=== PATIENT | male | born 2000 | race Caucasian/White ===

== ENCOUNTER 2021-05-21 14:56 | Emergency (ER) | payer BC, SELFPAY ==
[2021-05-21 15:06] VITALS: BP 131/77; PULSE 70; RESP 16; TEMP 36.3; O2SAT 99; BMI 31.2
[2021-05-21 15:18] VITALS: BP 131/71; PULSE 70; RESP 18; O2SAT 99
[2021-05-21] MEDS: tetanus-dipt-pertussis 0.5 mL SDV IM (15:33)
--- NOTE | 2021-05-21 15:36 | PC.NURSE ---
[employer]ET [employer] REPORTER approved no Lidocaine as wound was closed with skin adhesive
--- NOTE | 2021-05-21 15:37 | ED_ITS ---
HPI - Wound/Laceration General: Chief Complaint: Wound/Laceration Stated Complaint: Left thumb lac Time Seen by Provider: 05/21/21 15:09 History of Present Illness: HPI narrative: Patient cut there between left thumb and index finger with a knife while skinning a deer today. Onset (ago): minute(s) Extremity Location: Left: hand Place: home Patient tetanus UTD: No Context: accidental Associated symptoms: Reports no associated symptoms; Denies chills or fever(s) Review of Systems Const: Denies: fever(s) or chills Skin/Breast: Reports: other (Laceration left thumb) Psych: Denies: anxiety Physical Exam Const: COMMON NORMALS: no acute distress Psych: COMMON NORMALS: mental status grossly normal Skin: OTHER: Laceration left thumb proximally 1 cm very superficial closed with glue. Small laceration to the index finger 3 mm closed with glue. Distal neurovascular functions all intact. Procedures Laceration Laceration 1: Site: hand Side (If applicable): left Size (cm): 2 Description: linear Depth: simple, single layer Pre-repair: wound explored and irrigated extensively Skin layer closed with: other (Skin adhesive) Course Vital Signs: Vital signs: Vital Signs Temperature 97.3 F L 05/21/21 15:06 Pulse Rate 70 05/21/21 15:18 Respiratory Rate 18 05/21/21 15:18 Blood Pressure 131/71 05/21/21 15:18 Pulse Oximetry 99 05/21/21 15:18 Discharge Plan Discharge Patient Disposition: Home Clinical Impression: Laceration Condition: Stable Prescriptions: New cephalexin 500 mg capsule 500 mg PO Q8H 7 Days Qty: 21 RF: 0 Discharge Orders: Discharge ED (Routine); Ordered 05/21/21 Ordered By: David Leslie Referrals: Troy Tolentino MD [Primary Care Provider] - Discharge Diet: Usual diet Discharge Activity: Resume usual activity Patient Instructions: Laceration (ED), Skin Adhesive Care (ED) Activity Restrictions/Additional Instructions: Follow-up with medical provider as directed. Take medications as prescribed. Return to the ER or your medical provider if condition worsens. Please read and understand discharge instructions. If any questions ask please. 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
== END 2021-05-21 16:15 | disposition home or self-care (01) ==
PROVIDERS: Emergency Provider Nurse Practitioner Family; PCP Family Medicine
DX: S61.211A Laceration without foreign body of left index finger without damage to nail, initial encounter (principal); W26.0XXA Contact with knife, initial encounter; Z23 Encounter for immunization
CPT/HCPCS: 12001; 90471; 90715; 99283

== ENCOUNTER 2021-05-22 12:06 | Emergency (ER) | payer BC, SELFPAY ==
[2021-05-22 12:14] VITALS: BP 146/88; PULSE 85; RESP 16; TEMP 37.1; O2SAT 99; BMI 31.8
--- NOTE | 2021-05-22 13:02 | ED_ITS ---
HPI - Wound/Laceration General: Chief Complaint: Wound/Laceration Stated Complaint: Injury to Left Hand, visit on 05/21, glue not held Time Seen by Provider: 05/22/21 12:25 Source: patient Mode of arrival: ambulatory Limitations: no limitations History of Present Illness: HPI narrative: 20-year-old male presents to the ER today for laceration to left thumb. Patient did this yesterday and was seen in the ER. Laceration was glued shut and Steri-Strips were applied. Patient reports this opened up this morning and he became concerned. Patient denies any increased pain or redness. Patient was started on antibiotics yesterday and is taking them appropriately. Patient was also given a tetanus shot while in the ER yesterday. Patient denies any chest pain, shortness of breath, headache, fever, chills, nausea, vomiting, diarrhea, constipation. Onset (ago): day(s) Location: other Extremity Location: Left: hand (between thumb and index finger) Place: home Patient tetanus UTD: Yes Context: accidental Associated symptoms: Denies chills, fever(s), nausea or vomiting Review of Systems General: Reports: 10 or more systems reviewed and unremarkable except in HPI and below Const: Denies: fever(s), chills or body aches ENMT: Denies: throat pain, nasal discharge or nasal congestion Card: Denies: chest pain or palpitations Resp: Denies: dyspnea, productive cough or wheezing GI: Denies: abdominal pain, nausea, vomiting, diarrhea or constipation Musc: Denies: neck pain, back pain, extremity pain or extremity swelling Skin/Breast: Denies: rash Neuro: Denies: headache(s) Psych: Denies: anxiety or depression Physical Exam Const: COMMON NORMALS: no acute distress, average body habitus and patient oriented x3 GENERAL APPEARANCE: cooperative and comfortable HENMT: COMMON NORMALS: normocephalic, atraumatic, Normal external nose present and moist oral mucous membranes HEAD & SCALP: normocephalic and atraumatic NOSE: Normal external nose present Eye: COMMON NORMALS: conjunctivae normal CONJUNCTIVA: Yes conjunctivae normal Neck/C-Spine: COMMON NORMALS: full ROM Resp: COMMON NORMALS: normal respiratory effort and No retractions EFFORT & INSPECTION: Yes able to speak in complete sentences Cardio: COMMON NORMALS: regular rate and regular rhythm RATE: regular rate RHYTHM: regular rhythm Extremity: COMMON NORMALS: full ROM Neuro: COMMON NORMALS: patient oriented x3 Psych: COMMON NORMALS: mental status grossly normal, Normal thought process present and cooperative THOUGHT PROCESS: Normal thought process present Skin: NARRATIVE SKIN EXAM: Patient has a 2 cm laceration between the left thumb and index finger. This has opened up however no underlying tissue is exposed. There is no redness or drainage noted at this time. Patient has normal range of motion of the thumb and index finger. No swelling noted. Course ED course: Patient presents to the ER today for evaluation of a laceration that occurred yesterday. Patient who was seen in the ER had glue and Steri-Str ips placed. These did come off and the wound opened back up and so patient became concerned. Patient denies any increased redness or swelling, denies increased pain or drainage. Vital Signs: Vital signs: Vital Signs Temperature 98.8 F 05/22/21 12:14 Pulse Rate 85 05/22/21 12:14 Respiratory Rate 16 05/22/21 12:14 Blood Pressure 146/88 05/22/21 12:14 Pulse Oximetry 99 05/22/21 12:14 MDM - Wound/Laceration MDM Narrative: Medical decision making narrative: Patient was seen in the ER yesterday for a laceration between the left thumb and index finger. This is approximately 2 cm. It was glued and Steri-Stripped however those did come off and the wound opened up. Patient denies any increased pain, redness, swelling, drainage. Patient was concerned that the wound had opened back up. Patient was placed on antibiotics which he should continue at this time. I discussed with patient that given the length of time he has had the laceration it is not recommended that we close that at this time. It appears that it will heal nicely with a nonstick dressing and some antibiotic ointment. Wound care was thoroughly discussed with patient. Follow-up with primary care in 1 week. Return to the ER with any new or worsening symptoms. Tetanus status is up-to-date. Discharge Plan Discharge Patient Disposition: Home Clinical Impression: Laceration Condition: Stable Prescriptions: No Action cephalexin 500 mg capsule 500 mg PO Q8H 7 Days Qty: 21 RF: 0 Discharge Orders: Discharge ED (Routine); Ordered 05/22/21 Ordered By: Yola Gutierrez Referrals: Troy Tolentino MD [Primary Care Provider] - Discharge Diet: Usual diet Discharge Activity: Resume usual activity Patient Instructions: Opioid Safety Activity Restrictions/Additional Instructions: Keep wound clean and covered. Wash with antibacterial soap and water twice daily. Apply a nonstick dressing and topical antibiotic cream or ointment. Continue antibiotics as previously prescribed. Follow-up with PCP in 1 week. Return to the ER with any signs of infection such as redness or swelling. Coding Level of Care Code ED Hand Mold Maker for Leeanne Joseph
--- NOTE | 2021-05-22 13:12 | PC.NURSE ---
per instruction place neosporin on wound with Telfa and cover with coban. Pt cleaned wound with soap and water.
[2021-05-22 13:13] VITALS: BP 134/84; PULSE 76; RESP 16; O2SAT 98
== END 2021-05-22 13:14 | disposition home or self-care (01) ==
PROVIDERS: Emergency Provider Physician Assistant; PCP Family Medicine
DX: S61.412A Laceration without foreign body of left hand, initial encounter (principal); X58.XXXA Exposure to other specified factors, initial encounter
CPT/HCPCS: 99282

== ENCOUNTER → 2022-02-14 19:26 | Outpatient (BNVA) | payer BC, SELFPAY | PROVIDERS: PCP Family Medicine; Visit Provider Emergency Medicine | DX: U07.1 COVID-19 (principal); B34.9 Viral infection, unspecified | CPT/HCPCS: 87426 ==